=== PATIENT | male | born 1930 | race Two or more races ===

== ENCOUNTER 2018-05-07 22:10 | Inpatient (IN) | payer MEDICARE ==
[~2018-05-07] VITALS: Ht 165.1 cm; Wt 65.3 kg
--- NOTE | 2018-05-07 22:12 | NUR ---
Pt bib private ambulance from [facility] here for medical clearance and admission into MHU. Pt on 5150 hold for DTO. Safety measures implemented.
[2018-05-07] MEDS ORDERED: DIVA-78 PO (22:22)
[2018-05-07] MEDS ORDERED: METO-356 PO (22:22)
[2018-05-07] MEDS ORDERED: FAMO20TA8 PO (22:22)
[2018-05-07] MEDS ORDERED: CHOL10002 PO (22:22)
[2018-05-07] MEDS ORDERED: FERR325T28 PO (22:22)
[2018-05-07] MEDS ORDERED: MULT1TAB73 PO (22:22)
[2018-05-07] MEDS ORDERED: THIA100T13 PO (22:22)
[2018-05-07] MEDS ORDERED: DONE5TAB34 PO (22:22)
[2018-05-07 22:38] LABS: BASOPHILS # (AUTO) 0.1 K/uL (0.0-8.0); BASOPHILS % (AUTO) 0.7 % (0.0-2.0); EOSINOPHILS # (AUTO) 0.3 K/uL (0.0-0.7); EOSINOPHILS % (AUTO) 3.9 % (0.0-7.0); HEMATOCRIT 26.8 % (36.7-47.1); HEMOGLOBIN 8.7 g/dL (12.5-16.3); LYMPHOCYTES # (AUTO) 2.6 K/uL (20.0-40.0); LYMPHOCYTES % (AUTO) 35.8 % (20.5-51.5); MEAN CORPUSCULAR HGB CONC 33 g/dL (32.5-36.3); MONOCYTES # (AUTO) 0.9 K/uL (2.0-10.0); MONOCYTES % (AUTO) 12.3 % (0.0-11.0); NEUTROPHILS # (AUTO) 3.4 K/uL (1.8-8.9); NEUTROPHILS % (AUTO) 47.3 % (38.5-71.5); PLATELET COUNT (AUTO) 300 K/uL (152-348); RED BLOOD CELL COUNT(AUTO) 3.35 MIL/uL (4.06-5.63); WHITE BLOOD COUNT (AUTO) 7.2 K/uL (3.6-10.2)
[2018-05-07 22:41] LABS: CARBON DIOXIDE 28 mmol/L (21-32); CHLORIDE 108 mmol/L (98-107); CREATININE 1.4 mg/dL (0.6-1.3); GLUCOSE 115 mg/dL (74-106); UREA NITROGEN, BLOOD 29 mg/dL (7-18)
[2018-05-07 22:47] LABS: ALANINE AMINOTRANSFERASE 16 U/L (16-63); ALKALINE PHOSPHATASE 70 U/L (50-136); ASPARTATE AMINOTRANSFERASE 11 U/L (15-37); BILIRUBIN,DIRECT < 0.1 mg/dL (0.0-0.2); BILIRUBIN,TOTAL 0.3 mg/dL (0.2-1.0); TOTAL PROTEIN, SERUM 7.5 g/dL (6.4-8.2)
[2018-05-07 22:48] LABS: ETHANOL < 3 MG/DL (0-0)
[2018-05-07 22:49] LABS: ACETAMINOPHEN < 2.0 ug/mL (10-30)
--- NOTE | 2018-05-07 22:52 | NUR ---
Patient medically cleared by ER .
[2018-05-07 22:54] LABS: THYROID STIMULATING HORMONE 2.919 mIU/mL (0.358-3.740)
--- NOTE | 2018-05-07 22:57 | NUR ---
Report given to receiving MHU RN. Pt. admitted to MHU , under care of Dr. Larson/Tej Lilly Belongs List completed
[2018-05-07] MEDS ORDERED: MAG HYDROX/AL HYDROX/SIMETH 30 ML LIQUID UDC PO PRN (23:30)
[2018-05-07] MEDS ORDERED: LORAZEPAM 0.5 MG TABLET PO PRN (23:30)
[2018-05-07] MEDS ORDERED: MAGNESIUM HYDROXIDE 30 ML LIQUID UDC PO PRN (23:30)
[2018-05-07] MEDS ORDERED: TEMAZEPAM 7.5 MG CAPSULE PO PRN (23:30)
[2018-05-08] MEDS: METOPROLOL SUCCINATE XL 25 MG TAB.SR.24H PO SCH ×2 (00:09→08:31)
[2018-05-08] MEDS: AMLODIPINE 5 MG TABLET PO SCH ×3 (00:09→20:49)
[2018-05-08 02:10] VITALS: BP 194/89
[2018-05-08 04:54] LABS: *BILIRUBIN,URIN NEGATIVE (NEGATIVE); *BLOOD, URINE NEGATIVE (NEGATIVE); *CLARITY,URINE CLEAR (CLEAR); *COLOR,URINE YELLOW (YELLOW); *KETONES,URINE NEGATIVE (NEGATIVE); *UROBILINOGEN,URINE 0.2 E.U./dl (NORMAL); LEUKOCYTE ESTERASE ,URINE NEGATIVE (NEGATIVE); NITRITE, URINE NEGATIVE (NEGATIVE); UGLUCOSE NEGATIVE (NEGATIVE)
[2018-05-08 05:42] LABS: *AMPHETAMINE, URINE NEGATIVE (NEGATIVE); *BARBITURATE, URINE NEGATIVE (NEGATIVE); *CANNABINOID, URINE NEGATIVE (NEGATIVE); *COCCAINE, URINE NEGATIVE (NEGATIVE); *OPIATE, URINE NEGATIVE (NEGATIVE); *PHENCYCLIDINE SCREEN,URINE NEGATIVE (NEGATIVE)
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
[2018-05-08 07:30] VITALS: BP 142/62
[2018-05-08] MEDS: CHOLECALCIFEROL 1,000 UNIT TABLET PO SCH (08:30)
[2018-05-08] MEDS: FAMOTIDINE 20 MG TABLET PO SCH (08:30)
[2018-05-08] MEDS: MULTIVITAMINS,THERAPEUTIC TABLET PO SCH (08:30)
[2018-05-08] MEDS: THIAMINE HCL 100 MG TABLET PO SCH (08:31)
[2018-05-08] MEDS: FERROUS SULFATE 325 MG TABEC PO SCH ×3 (08:31→16:00)
[2018-05-08] MEDS ORDERED: LOPERAMIDE HCL 2 MG CAPSULE PO PRN (09:30)
--- NOTE | 2018-05-08 13:58 | NUR ---
Initial Discharge Instructions: Patient currently resides at [facility] [[address] , [facility] [address]; ]. Per patient he does not want to return there post discharge. Spoke with pt's daughter, Casi ([phone]), who states she would like assistance finding a memory care SNF to better fit his needs. SW contacted education program coordinator, Paula from [facility]. Per Paula, the pt. may return when ready for discharge. PIETRO Dietitian Therapeutic and other SW will continue to collaborate with interdisciplinary team to ensure safe and proper discharge planning.
[2018-05-08 20:04] VITALS: BP 124/50
[2018-05-08] MEDS: OLANZAPINE 2.5 MG TABLET PO SCH (20:50)
--- NOTE | 2018-05-09 05:35 | NUR ---
Patient was calm and cooperative t/o shift. Vital signs stable. Med compliant. Slept t/o shift. No behavioral issues. All needs met.
[2018-05-09] MEDS: FAMOTIDINE 20 MG TABLET PO SCH (06:31)
[2018-05-09 07:30] VITALS: BP 99/54
--- NOTE | 2018-05-09 08:00 | NUR ---
PATIENT BLOOD PRESSURE WAS LOW THIS MORNING. 99/54. HR: 54. HELP BLOOD PRESSURE MEDICATIONS OF AMLODIPINE AND METOPROLOL. PATIENT SEEM TO BE A LITTLE LETHARGIC UPON ASSESSMENT, HELD ZYPREXA MEDICATIONS WELL. WILL CONTINUE TO MONITOR THE PATIENT CLOSELY AND REASSESS VITAL SIGNS.
[2018-05-09] MEDS: MULTIVITAMINS,THERAPEUTIC TABLET PO SCH (08:12)
[2018-05-09] MEDS: METOPROLOL SUCCINATE XL 25 MG TAB.SR.24H PO SCH (08:13)
[2018-05-09] MEDS: AMLODIPINE 5 MG TABLET PO SCH ×2 (08:13→20:24)
[2018-05-09] MEDS: FERROUS SULFATE 325 MG TABEC PO SCH ×3 (08:14→16:35)
[2018-05-09] MEDS: THIAMINE HCL 100 MG TABLET PO SCH (08:14)
[2018-05-09] MEDS: CHOLECALCIFEROL 1,000 UNIT TABLET PO SCH (08:14)
[2018-05-09] MEDS: OLANZAPINE 2.5 MG TABLET PO SCH ×2 (08:21→20:25)
--- NOTE | 2018-05-09 09:20 | NUR ---
REASSESS THE PATIENTS VITAL SIGNS. PATIETN BLOOD PRESSURE IS 121/65 WITH HR: 69. AND O2 SATURATION OF 100%. PATIENT IS INS TABLE CONDITION AND DENIES ANY PAIN OR DISCOMFORT AT THIS TIME. WILL CONTINUE TO MONITOR.
[2018-05-09] MEDS: ACETAMINOPHEN 325 MG TABLET PO PRN (16:35)
[2018-05-09 16:41] VITALS: BP 175/64
[2018-05-09 17:12] VITALS: BP 134/53
--- NOTE | 2018-05-09 18:35 | NUR ---
patient has been in his room through out the day. patient complains of bilateral knee pain. Patient was given Tylenol. Vital signs are within normal limits. Patient is calm and shows no aggressive behavior. Patient is cooperative with all care and medication administration. Will continue to monitor closely and endorse plan of care to the night nurse.
[2018-05-09 20:09] VITALS: BP 125/50
--- NOTE | 2018-05-10 06:11 | NUR ---
GPS: Remain calm and cooperative throughout the shift. compliant with medications.slept 8 hrs through the night. resting in bed comfortably. ambulate with fww and assistance to bath room. continue monitor for safety.
[2018-05-10] MEDS: FAMOTIDINE 20 MG TABLET PO SCH (06:42)
[2018-05-10 07:30] VITALS: BP 140/65
[2018-05-10] MEDS: OLANZAPINE 2.5 MG TABLET PO SCH (08:05)
[2018-05-10] MEDS: MULTIVITAMINS,THERAPEUTIC TABLET PO SCH (08:06)
[2018-05-10] MEDS: CHOLECALCIFEROL 1,000 UNIT TABLET PO SCH (08:06)
[2018-05-10] MEDS: THIAMINE HCL 100 MG TABLET PO SCH (08:06)
[2018-05-10] MEDS: FERROUS SULFATE 325 MG TABEC PO SCH ×3 (08:06→16:26)
[2018-05-10] MEDS: ACETAMINOPHEN 325 MG TABLET PO PRN ×2 (08:07→16:26)
[2018-05-10] MEDS: METOPROLOL SUCCINATE XL 25 MG TAB.SR.24H PO SCH (09:00)
[2018-05-10] MEDS: AMLODIPINE 5 MG TABLET PO SCH ×2 (09:00→20:17)
[2018-05-10 16:00] VITALS: BP 122/59
--- NOTE | 2018-05-10 18:33 | NUR ---
GPS: patient has been in his room through out the day, Patient is compliant with all medication and medical treatment. Patient is able to verbalize needs. Patient is calm and showed no aggressive behavior towards staff. Patient stated "that his pain in his stomach is because of a residents who was at the facility he came from is causing him to have pain" Patient states he has had diarrhea. Educate the patient to poop in toilet and to allow us to assess the bowel. patient stated " he doesnt want to leave it there because he thinks someone will take his poop away." Will continue to monitor and assess patients bowel movement.
[2018-05-10] MEDS: OLANZAPINE 5 MG TABLET PO SCH (20:17)
[2018-05-10 20:29] VITALS: BP 137/56
--- NOTE | 2018-05-11 06:00 | NUR ---
GPS: Patient Remain calm and cooperative . Vital signs stable. Med compliant. Slept 8:30 hrs through the shift. No behavioral issues. All needs met. took shower this morning. continue plan of care.
[2018-05-11] MEDS: FAMOTIDINE 20 MG TABLET PO SCH (06:38)
[2018-05-11 07:30] VITALS: BP 109/73
[2018-05-11 07:59] LABS: BASOPHILS % (AUTO) 0.6 % (0.0-2.0); EOSINOPHILS # (AUTO) 0.5 K/uL (0.0-0.7); EOSINOPHILS % (AUTO) 7.5 % (0.0-7.0); HEMATOCRIT 27.9 % (36.7-47.1); HEMOGLOBIN 8.7 g/dL (12.5-16.3); LYMPHOCYTES # (AUTO) 2.4 K/uL (20.0-40.0); LYMPHOCYTES % (AUTO) 39.1 % (20.5-51.5); MEAN CORPUSCULAR HEMOGLOBIN 25.1 uug (23.8-33.4); MEAN CORPUSCULAR HGB CONC 31 g/dL (32.5-36.3); MEAN CORPUSCULAR VOLUME 80.3 fL (73.0-96.2); MONOCYTES # (AUTO) 0.8 K/uL (2.0-10.0); MONOCYTES % (AUTO) 12.7 % (0.0-11.0); NEUTROPHILS # (AUTO) 2.5 K/uL (1.8-8.9); NEUTROPHILS % (AUTO) 40.1 % (38.5-71.5); PLATELET COUNT (AUTO) 316 K/uL (152-348); RED BLOOD CELL COUNT(AUTO) 3.48 MIL/uL (4.06-5.63); WHITE BLOOD COUNT (AUTO) 6.1 K/uL (3.6-10.2)
[2018-05-11 08:40] LABS: CARBON DIOXIDE 29 mmol/L (21-32); CHLORIDE 107 mmol/L (98-107); CREATININE 1.3 mg/dL (0.6-1.3); GLUCOSE 85 mg/dL (74-106); MAGNESIUM 2.2 mg/dL (1.8-2.4); PHOSPHOROUS 3.5 mg/dL (2.5-4.9); POTASSIUM 4.7 mmol/L (3.5-5.1); UREA NITROGEN, BLOOD 25 mg/dL (7-18)
[2018-05-11] MEDS: CHOLECALCIFEROL 1,000 UNIT TABLET PO SCH (09:15)
[2018-05-11] MEDS: METOPROLOL SUCCINATE XL 25 MG TAB.SR.24H PO SCH (09:15)
[2018-05-11] MEDS: THIAMINE HCL 100 MG TABLET PO SCH (09:15)
[2018-05-11] MEDS: FERROUS SULFATE 325 MG TABEC PO SCH ×3 (09:16→17:05)
[2018-05-11] MEDS: AMLODIPINE 5 MG TABLET PO SCH ×2 (09:16→20:39)
[2018-05-11] MEDS: OLANZAPINE 5 MG TABLET PO SCH ×2 (09:16→20:38)
[2018-05-11] MEDS: MULTIVITAMINS,THERAPEUTIC TABLET PO SCH (09:16)
[2018-05-11 15:23] VITALS: BP 100/49
--- NOTE | 2018-05-11 16:30 | NUR ---
Injection Maintenance Technician Discharge Planning: PIETRO Edward contacted pt.s daughter, Casi Chandra to discuss discharge planning. PIETRO Range Rider inquired regarding what city the Casi would prefer the patients SNF to be located in. Casi expressed that she and her sister live in the [facility] [place] areas and would prefer a memory care SNF near them. In addition, they would also like for the pt. to go to [facility] [[address] [place] [address]; ] if a bed is available because they like the facility. PIETRO Edward informed Casi that social worker aide would look into facilities closer to them as well as [facility]. PIETRO Edward and other SW will continue to collaborate with interdisciplinary team for proper discharge planning.
--- NOTE | 2018-05-11 18:32 | NUR ---
PT CALM AND COOPERATIVE. EATING WELL. VOIDING WELL. SITTING UP IN CHAIR MOST OF THE TIME. WILL CONTINUE TO MONITOR.
[2018-05-11 20:36] VITALS: BP 123/51
--- NOTE | 2018-05-12 06:22 | NUR ---
GPS: Patient Remain calm and cooperative through the shift. Vital signs stable. Med compliant. Slept 7 hrs through the shift. No behavioral issues. All needs met. continue plan of care.
[2018-05-12] MEDS: FAMOTIDINE 20 MG TABLET PO SCH (06:36)
[2018-05-12 07:30] VITALS: BP 117/81
[2018-05-12] MEDS: MULTIVITAMINS,THERAPEUTIC TABLET PO SCH (08:25)
[2018-05-12] MEDS: METOPROLOL SUCCINATE XL 25 MG TAB.SR.24H PO SCH (08:26)
[2018-05-12] MEDS: THIAMINE HCL 100 MG TABLET PO SCH (08:26)
[2018-05-12] MEDS: AMLODIPINE 5 MG TABLET PO SCH ×2 (08:26→20:24)
[2018-05-12] MEDS: FERROUS SULFATE 325 MG TABEC PO SCH ×3 (08:26→16:25)
[2018-05-12] MEDS: CHOLECALCIFEROL 1,000 UNIT TABLET PO SCH (08:29)
[2018-05-12] MEDS: OLANZAPINE 2.5 MG TABLET PO SCH ×2 (08:30→12:16)
[2018-05-12] MEDS ORDERED: SIMETHICONE 80 MG TAB.CHEW PO PRN (11:15)
[2018-05-12] MEDS: ACETAMINOPHEN 325 MG TABLET PO PRN ×2 (12:27→22:24)
--- NOTE | 2018-05-12 16:14 | NUR ---
Patient taking her medicine without difficulty. complaint of lower extremity pain. tylenol PRN given. not in distress. will continue monitor
[2018-05-12 16:50] VITALS: BP 103/49
[2018-05-12] MEDS: OLANZAPINE 5 MG TABLET PO SCH (20:22)
[2018-05-12 22:08] VITALS: BP 129/43
--- NOTE | 2018-05-12 22:26 | NUR ---
GPS: PATIENT C/O LOWER LEG PAIN. TYLENOL 650 MG PO GIVEN.
--- NOTE | 2018-05-12 23:26 | NUR ---
GPS: PATIENT STATED I AM FEELING BETTER NOW. PRN EFFECTIVE.
--- NOTE | 2018-05-13 05:50 | NUR ---
GPS: Remain calm and cooperative with medications and care. slept 6:30 hrs through the noght. no agitation noted at this time. continue plan of care.
[2018-05-13] MEDS: PANTOPRAZOLE SODIUM 40 MG TABLET.DR PO SCH (06:07)
[2018-05-13] MEDS: FAMOTIDINE 20 MG TABLET PO SCH (06:31)
[2018-05-13 07:30] VITALS: BP 157/66
[2018-05-13] MEDS: FERROUS SULFATE 325 MG TABEC PO SCH ×3 (08:21→16:25)
[2018-05-13] MEDS: MULTIVITAMINS,THERAPEUTIC TABLET PO SCH (08:21)
[2018-05-13] MEDS: OLANZAPINE 2.5 MG TABLET PO SCH ×2 (08:21→12:00)
[2018-05-13] MEDS: CHOLECALCIFEROL 1,000 UNIT TABLET PO SCH (08:21)
[2018-05-13] MEDS: THIAMINE HCL 100 MG TABLET PO SCH (08:21)
[2018-05-13] MEDS: AMLODIPINE 5 MG TABLET PO SCH ×2 (08:22→21:18)
[2018-05-13] MEDS: METOPROLOL SUCCINATE XL 25 MG TAB.SR.24H PO SCH (08:22)
[2018-05-13] MEDS: ACETAMINOPHEN 325 MG TABLET PO PRN ×2 (08:26→14:32)
--- NOTE | 2018-05-13 12:27 | NUR ---
Firearms Report: PIETRO completed and submitted [employer] Firearms Report for 5250 GD certification.
--- NOTE | 2018-05-13 12:28 | NUR ---
Millwright Supervisor Discharge Planning: SW faxed SNF inquiries to the following facilities: [facility] (ph. [phone]; f. [phone]; Attn Beatriz) [facility] (ph. [phone]; f. [phone]; Attn Rocío) Awaiting decision from both facilities, and SW will continue to follow-up.
--- NOTE | 2018-05-13 15:29 | NUR ---
GROUP NOTE: Group topic was focused on how to talk with your doctor and advocate for yourself Subjective: "No, I do not want to attend" Objective: Patient did not express interest in attending group and was not present for group. Patient observed walking down the hallway back to his room. Assessment: Patient presented with pleasant mood. Patient needs frequent encouragement to participate in group activities. Plan: pressroom worker will continue to encourage group attendance as scheduled. pressroom worker will continue to provide support to the patient to encourage participation.
[2018-05-13 16:00] VITALS: BP 120/46
--- NOTE | 2018-05-13 18:13 | NUR ---
patient is alert and oriented x2. Patient remains in room and does not participate in group activities. Patient walks around the unit occasionally with no distress. Patient is compliant with all medications and medical treatment. patient is able to verbalize needs and needs have been met.
[2018-05-13 21:00] VITALS: BP 126/56
[2018-05-13] MEDS: OLANZAPINE 5 MG TABLET PO SCH (21:18)
[2018-05-14 03:46] LABS: *OCCULT BLOOD STOOL POSITIVE (NEGATIVE)
--- NOTE | 2018-05-14 05:39 | NUR ---
Patient was stable throughout the shift and had a good sleep last night. Patient is alert and oriented x2 and denies any pain or discomfort at this time. Patient is compliant with all medications and medical treatments. No aggressive behavior was noted. Stool sample collected and sent to the lab. The result came back positive. Medication given as ordered. Safety measures maintained. Will continue to monitor and endorse plan of care to oncoming nurse.
[2018-05-14] MEDS: PANTOPRAZOLE SODIUM 40 MG TABLET.DR PO SCH (06:35)
[2018-05-14] MEDS: FAMOTIDINE 20 MG TABLET PO SCH (06:35)
[2018-05-14 07:30] VITALS: BP 122/62
[2018-05-14] MEDS: CHOLECALCIFEROL 1,000 UNIT TABLET PO SCH (08:37)
[2018-05-14] MEDS: MULTIVITAMINS,THERAPEUTIC TABLET PO SCH (08:38)
[2018-05-14] MEDS: FERROUS SULFATE 325 MG TABEC PO SCH ×3 (08:38→18:07)
[2018-05-14] MEDS: METOPROLOL SUCCINATE XL 25 MG TAB.SR.24H PO SCH (08:39)
[2018-05-14] MEDS: AMLODIPINE 5 MG TABLET PO SCH ×2 (08:39→21:44)
[2018-05-14] MEDS: THIAMINE HCL 100 MG TABLET PO SCH (08:40)
[2018-05-14] MEDS: OLANZAPINE 2.5 MG TABLET PO SCH ×2 (08:40→12:53)
[2018-05-14 16:00] VITALS: BP 114/72
[2018-05-14 20:22] VITALS: BP 120/54
[2018-05-14] MEDS: OLANZAPINE 5 MG TABLET PO SCH (21:44)
[2018-05-15] MEDS: FAMOTIDINE 20 MG TABLET PO SCH (06:41)
[2018-05-15] MEDS: PANTOPRAZOLE SODIUM 40 MG TABLET.DR PO SCH (06:41)
[2018-05-15 07:30] VITALS: BP 102/41
[2018-05-15] MEDS: CHOLECALCIFEROL 1,000 UNIT TABLET PO SCH (08:36)
[2018-05-15] MEDS: AMLODIPINE 5 MG TABLET PO SCH (08:36)
[2018-05-15 08:38] VITALS: BP 102/41
[2018-05-15] MEDS: THIAMINE HCL 100 MG TABLET PO SCH (08:38)
[2018-05-15] MEDS: METOPROLOL SUCCINATE XL 25 MG TAB.SR.24H PO SCH (08:38)
[2018-05-15] MEDS: MULTIVITAMINS,THERAPEUTIC TABLET PO SCH (08:38)
[2018-05-15] MEDS: FERROUS SULFATE 325 MG TABEC PO SCH ×2 (08:38→12:47)
[2018-05-15] MEDS: OLANZAPINE 2.5 MG TABLET PO SCH ×2 (08:38→12:47)
--- NOTE | 2018-05-15 08:43 | NUR ---
DC Note: Patient will be discharged to [facility] [Address: [address] [place] [id number]; ] via ambulance at 11am. Please arrange an ambulance for this patient. Spoke with Sage at the facility who state they are ready to accept the patient today. Spoke with patients daughter, Casi Chandra ([phone]) who is aware and agreeable with discharge plans. Patient is alert and oriented x2 and is cooperative. Patient will follow-up at the facility with Dr. Graham (Manufacturing Area Manager) and Dr. Larson (Psychiatrist). Addendum: 05/15/18 at 0912 by ONDINA CASTILLO CORRECTION TO [facility] ADDRESS: [address] [place] [address]; PHONE:
--- NOTE | 2018-05-15 14:09 | NUR ---
1200 Called report to [facility], [facility] regarding patient will be discharged today spoke with SCHUYLER Hay on car supervisor and informed about patient mental and medical status, medications to continueupon hospital discharged- staff verbalized understanding. All belongings returned and signed by patient. 1330 Patient discharged to facility mentioned above via ambulance. Patient alert and ox3, denies SI/HI. No delusion. No a/v hallucination noted.
== END 2018-05-15 13:30 | DRG 885 ==
LOC: ER 22:11 → GPS 22:54
PROVIDERS: ADMIT Psychiatry & Neurology Psychosomatic Medicine; ATTEND Nurse Practitioner Acute Care
DX: F25.0 Schizoaffective disorder, bipolar type (principal); F01.51 Vascular dementia, unspecified severity, with behavioral disturbance; N18.3 Chronic kidney disease, stage 3 (moderate); N17.0 Acute kidney failure with tubular necrosis; E44.1 Mild protein-calorie malnutrition; K21.9 Gastro-esophageal reflux disease without esophagitis; I12.9 Hypertensive chronic kidney disease with stage 1 through stage 4 chronic kidney disease, or unspecified chronic kidney disease; Z66 Do not resuscitate; Z68.24 Body mass index [BMI] 24.0-24.9, adult; G40.909 Epilepsy, unspecified, not intractable, without status epilepticus; M19.90 Unspecified osteoarthritis, unspecified site; J44.9 Chronic obstructive pulmonary disease, unspecified; D63.8 Anemia in other chronic diseases classified elsewhere; I70.90 Unspecified atherosclerosis; R26.2 Difficulty in walking, not elsewhere classified; E86.0 Dehydration; R73.9 Hyperglycemia, unspecified
CPT/HCPCS: 36415; 71045; 80307; 83735; 84100; 84443; 85025; 93005; 97110; 97112; 97116; 97530; A4663; G0480; G0480-TC